=== PATIENT | female | born 1945 | race African-American/Black ===

== ENCOUNTER 2017-11-28 17:49 | Emergency (ER) | payer OTHER ==
[2017-11-28 18:26] VITALS: BP 140/74; BMI 26.5
--- NOTE | 2017-11-28 18:26 | PDOC ---
Rapid Medical Evaluation Time Seen by Provider: 11/28/17 18:10 Medical Evaluation: 11/28/17 18:23 I have performed a brief in-person evaluation of this patient. The patient presents with a chief complaint of: Diffuse joint pain x > 1 week ago. H/o HTM, DM Pertinent physical exam findings:Stable and in NAD I have ordered the following:cbc/chem/ua The patient will proceed to the ED for further evaluation. 11/28/17 18:26 Discharge Disposition - Referrals Referrals: Ramiro Dodson MD [Primary Care Provider] - - Patient Instructions - Post Discharge Activity
[2017-11-28 18:48] LABS: BASO % 0.5 % (0-2.0); EOS % 0.8 % (0-4.5); HEMATOCRIT 31.6 % (32.4-45.2); HEMOGLOBIN 10.6 GM/dL (10.7-15.3); LYMPH % 26.5 % (8-40); MCH 28.4 pg (25.7-33.7); MCHC 33.5 g/dl (32.0-36.0); MEAN CELL VOLUME 84.7 fl (80-96); MEAN PLT VOLUME 7.8 fl (7.5-11.1); MONO % 9.4 % (3.8-10.2); NEUT % 62.8 % (42.8-82.8); PLATELET COUNT 386 K/MM3 (134-434); RBC 3.73 M/mm3 (3.60-5.2); RDW 14.8 % (11.6-15.6); WHITE BLOOD COUNT 8.4 K/mm3 (4.0-10.0)
[2017-11-28 18:51] LABS: URINE APPEARANCE SLCLOUDY; URINE BILIRUBIN NEGATIVE (NEGATIVE); URINE BLOOD NEGATIVE (NEGATIVE); URINE COLOR YELLOW; URINE GLUCOSE (UA) 3+ (NEGATIVE); URINE KETONE NEGATIVE (NEGATIVE); URINE NITRITE NEGATIVE (NEGATIVE); URINE UROBILINOGEN 4.0 E.U/dl mg/dL (0.2-1.0)
[2017-11-28 19:07] LABS: URINE LEUK ESTERASE 1+ (NEGATIVE); URINE PROTEIN 1+ (NEGATIVE)
[2017-11-28 19:08] LABS: EPI CELLS FEW /HPF (FEW); URINE HYALINE CAST 2 /lpf; URINE MUCUS RARE
[2017-11-28 19:13] LABS: ALBUMIN 3.1 g/dl (3.4-5.0); ANION GAP 6 (8-16); BILIRUBIN,TOTAL 0.3 mg/dL (0.2-1.0); BLOOD UREA NITROGEN 15 mg/dL (7-18); CALCIUM 8.9 mg/dL (8.5-10.1); CHLORIDE 98 mmol/L (98-107); CO2 29 mmol/L (21-32); POTASSIUM 4.9 mmol/L (3.5-5.1); SGOT/AST 19 U/L (15-37); SGPT/ALT 25 U/L (12-78); SODIUM 133 mmol/L (136-145)
[2017-11-28 19:15] LABS: ALK PHOS 108 U/L (45-117); TOT PROT 7.3 g/dl (6.4-8.2)
[2017-11-28 19:27] LABS: GLUCOSE,RANDOM 340 mg/dL (74-106)
[2017-11-28] MEDS ORDERED: metFORMIN HCL 500 MG TABLET (FP) PO ONE (19:55)
[2017-11-28] MEDS ORDERED: ACETAMINOPHEN 325 MG TABLET (FP) PO ONE (19:56)
[2017-11-28] MEDS ORDERED: glipiZIDE 5 MG TABLET (FP) PO ONE (19:56)
[2017-11-28] MEDS ORDERED: glipiZIDE 5 MG TABLET (FP) ONE (20:16)
[2017-11-28] MEDS ORDERED: ACETAMINOPHEN 325 MG TABLET (FP) ONE (20:16)
[2017-11-28] MEDS ORDERED: metFORMIN HCL 500 MG TABLET (FP) ONE (20:16)
--- NOTE | 2017-11-28 21:19 | PDOC ---
History of Present Illness - General History Source: Patient Exam Limitations: No Limitations - History of Present Illness Initial Comments: 11/28/17 21:25 The patient is a 72 year old female, with a significant past medical history of HTN, DM, Arthritis who presents to the emergency department with worsening body aches and generalized pain for the past week. Patient reports generalized weakness secondary to neck pain, shoulder pain and headache, tingling of lower extremities. Patient reports intermittent, pain 8/10 in severity with no associated symptoms. Patient reports taking tramadol, naproxen and gabapentin for her pain however denies any relief. Daughter notes, the patient has been deteriorating and has been bed bound for the past week. Patient presents to the ED for further evaluation. Patient denies chest pain or dizziness. Patient denies fever, chills, nausea, vomit, diarrhea or constipation. Patient denies dysuria, frequency, urgency or hematuria. Patient denies sick contacts or recent travel. Allergies: NKA Past surgical history: None Social history: None PCP: Dr. Dodson <Little Melgoza - Last Filed: 11/28/17 21:25> <Johana De La Garza - Last Filed: 11/29/17 01:00> - General Chief Complaint: Pain, Acute Stated Complaint: ABDOMINAL PAIN Time Seen by Provider: 11/28/17 18:10 Past History <Little Melgoza - Last Filed: 11/28/17 21:25> - Past Medical History COPD: No Diabetes: Yes (NIDDM) HTN: Yes Other medical history: ARTHRITIS - Suicide/Smoking/Psychosocial Hx Smoking History: Never smoked <Johana De La Garza - Last Filed: 11/29/17 01:00> - Past Medical History Allergies/Adverse Reactions: Allergies Allergy/AdvReac Type Severity Reaction Status Date / Time No Known Allergies Allergy Verified 11/28/17 18:24 Home Medications: Ambulatory Orders Aspirin [ASA -] 325 mg PO DAILY 11/28/17 Gabapentin [Neurontin -] 800 mg PO TID 11/28/17 Glipizide 5 mg PO BID 11/28/17 Metformin HCl [Glucophage] 1,000 mg PO BID 11/28/17 Naproxen [Naprosyn -] 500 mg PO BID 11/28/17 Tramadol HCl 50 mg PO TID 11/28/17 Valsartan 160 mg PO DAILY 11/28/17 Review of Systems - Review of Systems Able to Perform ROS?: Yes Comments:: 11/28/17 21:25 GENERAL/CONSTITUTIONAL: No fever or chills. +Generalized weakness. HEAD, EYES, EARS, NOSE AND THROAT: No change in vision. No ear pain or discharge. No sore throat. CARDIOVASCULAR: No chest pain or shortness of breath. RESPIRATORY: No cough, wheezing, or hemoptysis. GASTROINTESTINAL: +epigastric pain. No nausea, vomiting, diarrhea or constipation. GENITOURINARY: No dysuria, frequency, or change in urination. MUSCULOSKELETAL: +shoulder, neck pain. No joint or muscle swelling or pain. SKIN: No rash NEUROLOGIC: + headache. No vertigo, loss of consciousness, or change in strength /sensation. ENDOCRINE: No increased thirst. No abnormal weight change. HEMATOLOGIC/LYMPHATIC: No anemia, easy bleeding, or history of blood clots. ALLERGIC/IMMUNOLOGIC: No hives or skin allergy. <Little Melgoza - Last Filed: 11/28/17 21:25> *Physical Exam - Vital Signs Last Vital Signs Temp Pulse Resp BP Pulse Ox 99.6 F 99 H 20 140/74 96 11/28/17 18:24 11/28/17 18:24 11/28/17 18:24 11/28/17 18:24 11/28/17 18:24 - Physical Exam Comments: 11/28/17 21:26 GENERAL: Awake, alert, and fully oriented, in no acute distress HEAD: No signs of trauma EYES: PERRLA, EOMI, sclera anicteric, conjunctiva clear ENT: Auricles normal inspection, hearing grossly normal, nares patent, oropharynx clear without exudates. Moist mucosa NECK: Normal ROM, supple, no lymphadenopathy, JVD, or masses LUNGS: Breath sounds equal, clear to auscultation bilaterally. No wheezes, and no crackles HEART: Regular rate and rhythm, normal S1 and S2, no murmurs, rubs or gallops ABDOMEN: Soft, nontender, normoactive bowel sounds. No guarding, no rebound. No masses EXTREMITIES: +Limited ROM of bilateral shoulders secondary to arthritis.+Spasms of trapezius muscles. No edema. No clubbing or cyanosis. No cords, erythema, or tenderness. NEUROLOGICAL: Cranial nerves II through XII grossly intact. Normal speech, normal gait SKIN: Warm, Dry, normal turgor, no rashes or lesions noted. <Little Melgoza - Last Filed: 11/28/17 21:25> - Vital Signs Last Vital Signs Temp Pulse Resp BP Pulse Ox 99.6 F 99 H 20 140/74 96 11/28/17 18:24 11/28/17 18:24 11/28/17 18:24 11/28/17 18:24 11/28/17 18:24 <Johana De La Garza - Last Filed: 11/29/17 01:00> ED Treatment Course - LABORATORY CBC & Chemistry Diagram: 11/28/17 18:40 11/28/17 18:40 - ADDITIONAL ORDERS Additional order review: Laboratory Results 11/28/17 11/28/17 18:40 18:40 Sodium 133 L Potassium 4.9 Chloride 98 Carbon Dioxide 29 Anion Gap 6 L BUN 15 Creatinine 1.0 Creat Clearance w eGFR 54.66 Random Glucose 340 H* Calcium 8.9 Total Bilirubin 0.3 AST 19 ALT 25 Alkaline Phosphatase 108 Total Protein 7.3 Albumin 3.1 L Urine Color Yellow Urine Appearance Slcloudy Urine pH 6.0 Ur Specific [place] 1.014 Urine Protein 1+ H Urine Glucose (UA) 3+ H Urine Ketones Negative Urine Blood Negative Urine Nitrite Negative Urine Bilirubin Negative Urine Urobilinogen 4.0 e.u/dl H Urine WBC (Auto) 1 Urine RBC (Auto) 7 Ur Epithelial Cells Few Hyaline Casts 2 Urine Mucus Rare 11/28/17 18:40 RBC 3.73 MCV 84.7 MCHC 33.5 RDW 14.8 MPV 7.8 Neutrophils % 62.8 Lymphocytes % 26.5 Monocytes % 9.4 Eosinophils % 0.8 Basophils % 0.5 - Medications Given in the ED: ED Medications Discontinued Medications Generic Name Dose Route Start Last Admin Trade Name Freq PRN Reason Stop Dose Admin Acetaminophen 650 mg 11/28/17 19:56 11/28/17 20:22 Tylenol - PO 11/28/17 19:57 650 mg ONCE ONE Administration Glipizide 5 mg 11/28/17 19:56 11/28/17 20:22 Glucotrol - PO 11/28/17 19:57 5 mg ONCE ONE Administration Metformin HCl 1,000 mg 11/28/17 19:55 11/28/17 20:22 Glucophage - PO 11/28/17 19:56 1,000 mg ONCE ONE Administration Oxycodone/Acetaminophen 1 combo 11/28/17 19:55 11/28/17 20:22 Percocet 5/325 - PO 11/28/17 19:56 1 combo ONCE ONE Administration <Little Melgoza - Last Filed: 11/28/17 21:25> - LABORATORY CBC & Chemistry Diagram: 11/28/17 18:40 11/28/17 18:40 - ADDITIONAL ORDERS Additional order review: Laboratory Results 11/28/17 11/28/17 18:40 18:40 Sodium 133 L Potassium 4.9 Chloride 98 Carbon Dioxide 29 Anion Gap 6 L BUN 15 Creatinine 1.0 Creat Clearance w eGFR 54.66 Random Glucose 340 H* Calcium 8.9 Total Bilirubin 0.3 AST 19 ALT 25 Alkaline Phosphatase 108 Total Protein 7.3 Albumin 3.1 L Urine Color Yellow Urine Appearance Slcloudy Urine pH 6.0 Ur Specific [place] 1.014 Urine Protein 1+ H Urine Glucose (UA) 3+ H Urine Ketones Negative Urine Blood Negative Urine Nitrite Negative Urine Bilirubin Negative Urine Urobilinogen 4.0 e.u/dl H Urine WBC (Auto) 1 Urine RBC (Auto) 7 Ur Epithelial Cells Few Hyaline Casts 2 Urine Mucus Rare 11/28/17 18:40 RBC 3.73 MCV 84.7 MCHC 33.5 RDW 14.8 MPV 7.8 Neutrophils % 62.8 Lymphocytes % 26.5 Monocytes % 9.4 Eosinophils % 0.8 Basophils % 0.5 - RADIOLOGY Radiology Studies Ordered: Category Date Time Status HEAD CT WITHOUT CONTRAST [CT] Stat CT Scan 11/28/17 19:[address] W/O CONTRAST [CT] Stat CT Scan 11/28/17 20:25 Taken CHEST PA & LAT [RAD] Stat Radiology 11/28/17 19:56 Ordered - Medications Given in the ED: ED Medications Discontinued Medications Generic Name Dose Route Start Last Admin Trade Name Freq PRN Reason Stop Dose Admin Acetaminophen 650 mg 11/28/17 19:56 11/28/17 20:22 Tylenol - PO 11/28/17 19:57 650 mg ONCE ONE Administration Glipizide 5 mg 11/28/17 19:56 11/28/17 20:22 Glucotrol - PO 11/28/17 19:57 5 mg ONCE ONE Administration Metformin HCl 1,000 mg 11/28/17 19:55 11/28/17 20:22 Glucophage - PO 11/28/17 19:56 1,000 mg ONCE ONE Administration Oxycodone/Acetaminophen 1 combo 11/28/17 19:55 11/28/17 20:22 Percocet 5/325 - PO 11/28/17 19:56 1 combo ONCE ONE Administration <Johana De La Garza - Last Filed: 11/29/17 01:00> Medical Decision Making - Medical Decision Making 11/29/17 00:58 Pt comes with multiple joint pains and headache and other complaints. Her exam is normal, CXR and head CT normal, Mastoid CT normal, Labs normal, except for her poorly controlled DM. She tells me that she is sometimes noncomplaints with her DM meds. She will be asked to follow with her PMD. SHe has chronic joint pains. <Johana De La Garza - Last Filed: 11/29/17 01:00> *DC/Admit/Observation/Transfer - Attestations Scribe Attestion: 11/28/17 21:26 Documentation prepared by Little Melgoza, acting as medical social consultant for Johana De La Garza MD <Little Melgoza - Last Filed: 11/28/17 21:25> - Discharge Dispostion Admit: No <Johana De La Garza - Last Filed: 11/29/17 01:00> Diagnosis at time of Disposition: Arthritis, Depression, Poorly controlled diabetes mellitus - Discharge Dispostion Disposition: HOME Condition at time of disposition: Stable - Referrals Referrals: Ramiro Dodson MD [Primary Care Provider] - - Patient Instructions Printed Discharge Instructions: Depression and Chronic Illness: Which Comes First?, Depression Screening Advised for All Adults, DI for Arthritis - Post Discharge Activity
[2017-11-28 22:28] VITALS: PULSE 90; TEMP 98.6
== END 2017-11-28 22:28 | disposition home or self-care (01) ==
LOC: JER 17:49
DX: R10.13 Epigastric pain (principal); M25.50 Pain in unspecified joint; M13.89 Other specified arthritis, multiple sites; E11.65 Type 2 diabetes mellitus with hyperglycemia; Z79.84 Long term (current) use of oral hypoglycemic drugs; I10 Essential (primary) hypertension
CPT/HCPCS: 36415; 70450-TC; 70480-TC; 71046-TC; 80053; 81003; 81015; 85025; 99283-25